=== PATIENT | male | born 1970 | race Caucasian/White ===

== ENCOUNTER 2020-09-13 10:51 | Inpatient (IN) | payer SELFPAY ==
[2020-09-13 12:46] LABS: Absolute Lymphocytes (CBC) 1.9 K/uL (0.7-4.9); Basophils % 0.6 % (0-1.3); Hematocrit 43.9 % (39.6-49.0); Lymphocytes % 19.1 % (15.3-44.8); MPV 9.3 fL (7.6-11.3); RBC Red Blood Cell Count 4.59 M/uL (4.33-5.43)
[2020-09-13 12:54] LABS: Protime INR 1.13
[2020-09-13 13:06] LABS: ALT/SGPT 36 U/L (12-78); AST/SGOT 26 U/L (15-37); Albumin 3.6 g/dL (3.4-5.0); Alkaline Phosphatase 61 U/L (45-117); Amylase 38 U/L (25-115); BUN Blood Urea Nitrogen 9 mg/dL (7-18); Bicarbonate 25 mmol/L (21-32); Bilirubin Direct 0.3 mg/dL (0-0.2); Bilirubin Total 1.3 mg/dL (0.2-1.0); CKMB Creatine Kinase MB < 1.0 ng/mL (0.3-3.6); Creatine Phosphokinase 174 U/L (39-308); Glucose Level 170 mg/dL (74-106); Lipase 122 U/L (73-393); Potassium 3.6 mmol/L (3.5-5.1); Protein, Total 8.1 g/dL (6.4-8.2); Sodium Level 138 mmol/L (136-145); Troponin (Emerg Dept Use Only) < 0.02 ng/mL (0.0-0.045)
[2020-09-13] MEDS ORDERED: ONDANSETRON 4 MG/2 ML VIAL ONE (13:29)
[2020-09-13] MEDS ORDERED: PROMETHAZINE INJ 25 MG/ML AMP ONE (13:29)
[2020-09-13] MEDS ORDERED: DOXYCYCLINE 100 MG CAP PO ONE (13:29)
[2020-09-13] MEDS ORDERED: MORPHINE 4 MG/ML SYR ONE (13:29)
[2020-09-13] MEDS ORDERED: NA CHLORIDE 0.9% 1,000 ML ONE (13:30)
[2020-09-13] MEDS ORDERED: VANCOMYCIN/NS 1 gm 1 GM/250 ML BAG IV ONE (13:30)
[2020-09-13] MEDS ORDERED: TETANUS & DIPHTHERIA TOX,ADULT 0.5 ML VIAL ONE (13:30)
--- NOTE | 2020-09-13 13:42 | RAD REPORT ---
EXAM DESCRIPTION: RAD - Chest Single View - 09/13/2020 12:43 pm CLINICAL HISTORY: PAIN Chest pain. COMPARISON: No comparisons FINDINGS: Portable technique limits examination quality. The lungs are grossly clear. The heart is normal in size. No displaced fractures. IMPRESSION: No acute intrathoracic process suspected.
--- NOTE | 2020-09-13 14:11 | RAD REPORT ---
EXAM DESCRIPTION: USExtremity Venous Uni Ltd09/13/2020 1:52 pm CLINICAL HISTORY: Right leg pain and swelling. COMPARISON: None. FINDINGS: Right common femoral, superficial femoral, popliteal and right posterior tibial veins are compressible and demonstrate augmentation. Doppler demonstrates good flow. 4.3 x 3.5 x 1.6 centimeter Caraballo's cyst Heterogeneous echotexture posterior right calf compatible with mild contusion IMPRESSION: No evidence of deep venous thrombosis involving the right lower extremity. 4.3 centimeter Caraballo's cyst Mild contusion posterior right calf
--- NOTE | 2020-09-13 14:22 | RAD REPORT ---
EXAM DESCRIPTION: RAD - Tib Fib Right - 09/13/2020 2:02 pm CLINICAL HISTORY: Right leg pain FINDINGS: No fracture is seen 3 centimeter radiopaque density within the posteromedial soft tissues of calf likely a foreign body There are additional relatively round calcific densities in this region which could represent phlebo liths, other soft tissue calcifications or additional foreign bodies
--- NOTE | 2020-09-13 14:45 | ER ---
Nurse's Notes [facility] Name: Parker Zepeda Age: 50 yrs Sex: Male : 1970 Arrival Date: 09/13/2020 Time: 10:54 Bed 15 Private MD: Diagnosis: Puncture wound with foreign body of lower leg;Cellulitis of right lower limb Presentation: 09/13 11:26 Chief complaint: Patient states: was fishing and a jaja snapper (fish) struck him em in the back of the right calf on Friday, redness, swelling and drainage noted, unknown fever. Coronavirus screen: Client denies travel out of the [place] in the last 14 days. Ebola Screen: Patient negative for fever greater than or equal to 101.5 degrees Fahrenheit, and additional compatible Ebola Virus Disease symptoms Patient denies exposure to infectious person. Patient denies travel to an Ebola-affected area in the 21 days before illness onset. No symptoms or risks identified at this time. Initial Sepsis Screen: Does the patient meet any 2 criteria? HR > 90 bpm. No. Patient's initial sepsis screen is negative. Does the patient have a suspected source of infection? No. Patient's initial sepsis screen is negative. Risk Assessment: Do you want to hurt yourself or someone else? Patient reports no desire to harm self or others. Onset of symptoms was September 09, 2020. 11:26 Method Of Arrival: Wheelchair em 11:26 Acuity: MOMO 3 em Triage Assessment: 17:30 General: Appears in no apparent distress. Behavior is calm, cooperative. iw Historical: - Allergies: 11:31 No Known Allergies; em - PMHx: 11:31 Hypertension; em - PSHx: 11:31 None; em - Immunization history:: Adult Immunizations not up to date. - Social history:: Smoking status: Patient reports the use of cigarette tobacco products, smokes one-half pack cigarettes per day. Screenin:11 Abuse screen: Denies threats or abuse. Denies injuries from another. Nutritional iw screening: No deficits noted. Tuberculosis screening: No symptoms or risk factors identified. Fall Risk None identified. Assessment: 12:21 Reassessment: received VO from KERLINE Marino for sepsis workup. em 14:50 General: Appears in no apparent distress. Behavior is calm, cooperative. Pain: iw Complains of pain in right leg. Neuro: Level of Consciousness is awake, alert, obeys commands, Oriented to person, place, time, situation, Moves all extremities. Full function. Cardiovascular: Patient's skin is warm and dry. Respiratory: Respiratory effort is even, unlabored, Respiratory pattern is regular, symmetrical. GI: No signs and/or symptoms were reported involving the gastrointestinal system. Derm: redness and swelling noted to RLE, from ankle to mid calf area, circumferential. Musculoskeletal: Range of motion: intact in all extremities. 15:11 Reassessment: Patient appears in no apparent distress at this time. Patient and/or iw family updated on plan of care and expected duration. Pain level reassessed. Patient is alert, oriented x 3, equal unlabored respirations, skin warm/dry/pink. 16:39 Reassessment: Patient appears in no apparent distress at this time. Patient and/or iw family updated on plan of care and expected duration. Pain level reassessed. pt states pain has increased. Vital Signs: 11:26 BP 149 / 90; Pulse 118; Resp 20; Temp 98.6(O); Pulse Ox 100% on R/A; Weight 99.79 kg; em Height 5 ft. 10 in. (177.80 cm); Pain 6/10; 16:40 BP 113 / 79; Pulse 89; Resp 16; Pulse Ox 98% on R/A; iw 11:26 Body Mass Index 31.57 (99.79 kg, 177.80 cm) em ED Course: 10:54 Patient arrived in ED. as 11:29 Triage completed. em 11:31 Arm band placed on. em 12:21 Jamila Abbott FNP-C is PHCP. snw 12:21 Brandon Vieira MD is Attending Physician. snw 12:21 Patient has correct armband on for positive identification. iw 12:23 Alice Thomas, CELESTE is Primary Nurse. iw 12:30 Inserted saline lock: 20 gauge in right forearm, using aseptic technique. Blood em collected. 12:30 Initial lab(s) drawn, by me, sent to lab. First set of blood cultures drawn by me. em 12:43 Chest Single View XRAY In Process Unspecified. EDMS 13:50 US Extremity Venous Unilateral Ltd In Process Unspecified. EDMS 14:05 Tib Fib Right XRAY In Process Unspecified. EDMS 14:43 Roberto Lauren is Hospitalizing Provider. snw 18:06 No provider procedures requiring assistance completed. Patient admitted, IV remains in iw place. Administered Medications: 14:15 Drug: Phenergan 12.5 mg Route: IVP; Site: right antecubital; iw 15:00 Follow up: Response: No adverse reaction iw 14:20 Drug: morphine 4 mg Route: IVP; Site: right antecubital; iw 14:30 Drug: NS 0.9% (30 ml/kg) 30 ml/kg Route: IV; Rate: bolus; Site: right antecubital; iw 14:30 Drug: vancoMYCIN 1 grams Route: IVPB; Infused Over: 2 hrs; Site: right antecubital; iw 16:30 Follow up: IV Status: Completed infusion iw 16:27 Drug: Doxycycline 100 mg Route: PO; iw 17:00 Follow up: Response: No adverse reaction iw 16:27 Drug: Tetanus-Diphtheria Toxoid Adult 0.5 ml {Wood Barker: [employer]. Exp: iw 12/19/2020. Lot #: [id number]. } Route: IM; Site: left deltoid; 16:45 Follow up: Response: No adverse reaction iw Outcome: 14:44 Decision to Hospitalize by Provider. snw 18:06 Admitted to Med/surg accompanied by tech, via wheelchair, with chart. iw 18:06 Condition: good 18:06 Discharge instructions given to patient, Instructed on the need for admit, Demonstrated understanding of instructions. 18:07 Patient left the ED. iw Signatures: Dispatcher [employer] Jamila Gonzalez, BREWING DIRECTOR-C BREWING DIRECTOR-Csnw Duarte Martinez, RN RN Alpa Ramirez as Alice Thomas, RN RN iw Corrections: (The following items were deleted from the chart) 16:41 16:11 Reassessment: Patient appears in no apparent distress at this time. Patient iw and/or family updated on plan of care and expected duration. Pain level reassessed. Patient is alert, oriented x 3, equal unlabored respirations, skin warm/dry/pink. iw
--- NOTE | 2020-09-13 14:45 | EDPHYS ---
Physician Documentation [facility] Name: Parker Zepeda Age: 50 yrs Sex: Male : 1970 Arrival Date: 09/13/2020 Time: 10:54 Bed 15 Private MD: HALEY Physician Brandno Vieira HPI: 09/13 14:44 This 50 yrs old Male presents to ER via Wheelchair with complaints of Wound snw Check - r leg infection. 14:44 The patient presents with pain, a puncture wound, Snapper fin, swelling, tenderness. snw The complaints affect the medial aspect of right calf. Context: The problem was [place], resulted from a penetrating injury, fish fin. Onset: The symptoms/episode began/occurred suddenly, 5 day(s) ago, and became worse yesterday, and became persistent. Associated signs and symptoms: Pertinent positives: swelling, warmth, weakness. Severity of symptoms: At their worst the symptoms were moderate, severe. The patient has not experienced similar symptoms in the past. The patient has not recently seen a physician. Historical: - Allergies: 11:31 No Known Allergies; em - PMHx: 11: Hypertension; em - PSHx: 11:31 None; em - Immunization history:: Adult Immunizations not up to date. - Social history:: Smoking status: Patient reports the use of cigarette tobacco products, smokes one-half pack cigarettes per day. ROS: 14:30 Constitutional: Negative for fever, chills, and weight loss, Eyes: Negative for injury, snw pain, redness, and discharge, ENT: Negative for injury, pain, and discharge, Neck: Negative for injury, pain, and swelling, Cardiovascular: Negative for chest pain, palpitations, and edema, Respiratory: Negative for shortness of breath, cough, wheezing, and pleuritic chest pain, Abdomen/GI: Negative for abdominal pain, nausea, vomiting, diarrhea, and constipation, Back: Negative for injury and pain, : Negative for injury, bleeding, discharge, and swelling, MS/Extremity: Negative for injury and deformity, Neuro: Negative for headache, weakness, numbness, tingling, and seizure, Psych: Negative for depression, anxiety, suicide ideation, homicidal ideation, and hallucinations. 14:30 Skin: Positive for cellulitis, puncture, swelling, of the medial aspect of right calf and right calf. Exam: 14:29 Constitutional: This is a well developed, well nourished patient who is awake, alert, snw and in no acute distress. Head/Face: Normocephalic, atraumatic. Eyes: Pupils equal round and reactive to light, extra-ocular motions intact. Lids and lashes normal. Conjunctiva and sclera are non-icteric and not injected. Cornea within normal limits. Periorbital areas with no swelling, redness, or edema. ENT: Nares patent. No nasal discharge, no septal abnormalities noted. Tympanic membranes are normal and external auditory canals are clear. Oropharynx with no redness, swelling, or masses, exudates, or evidence of obstruction, uvula midline. Mucous membranes moist. Neck: Trachea midline, no thyromegaly or masses palpated, and no cervical lymphadenopathy. Supple, full range of motion without nuchal rigidity, or vertebral point tenderness. No Meningismus. Chest/axilla: Normal chest wall appearance and motion. Nontender with no deformity. No lesions are appreciated. Respiratory: Lungs have equal breath sounds bilaterally, clear to auscultation and percussion. No rales, rhonchi or wheezes noted. No increased work of breathing, no retractions or nasal flaring. Abdomen/GI: Soft, non-tender, with normal bowel sounds. No distension or tympany. No guarding or rebound. No evidence of tenderness throughout. Back: No spinal tenderness. No costovertebral tenderness. Full range of motion. 14:29 Cardiovascular: Rate: tachycardic, Rhythm: regular, Pulses: no pulse deficits are appreciated, Heart sounds: normal. 14:29 Skin: Appearance: normal except for affected area, cellulitis, that is severe, confluent, well demarcated, on the right calf, right Achilles, medial aspect of right calf, right ankle and right aleman, oozing from central area, + puncture wound. Vital Signs: 11:26 BP 149 / 90; Pulse 118; Resp 20; Temp 98.6(O); Pulse Ox 100% on R/A; Weight 99.79 kg; em Height 5 ft. 10 in. (177.80 cm); Pain 6/10; 16:40 BP 113 / 79; Pulse 89; Resp 16; Pulse Ox 98% on R/A; iw 11:26 Body Mass Index 31.57 (99.79 kg, 177.80 cm) em MDM: 12:29 Patient medically screened. snw 14:20 Data reviewed: vital signs, nurses notes. Data interpreted: Pulse oximetry: on room air snw is 100 %. Interpretation: normal. Counseling: I had a detailed discussion with the patient and/or guardian regarding: the historical points, exam findings, and any diagnostic results supporting the discharge/admit diagnosis, the presence of at least one elevated blood pressure reading (>120/80) during this emergency department visit, lab results, radiology results, the need for further work-up and treatment in the hospital. Physician consultation: Dinh Murillo MD was called at 14:23, was contacted at 14:23, regarding consult, patient's condition, NPO post MN. 14:42 Physician consultation: Roberto Lauren was called at 14:42, was contacted at 14:42, snw regarding admission, to the medical/surgical unit. 09/13 12:23 Order name: Amylase, Serum em 09/13 12:23 Order name: Basic Metabolic Panel em 09/13 12:23 Order name: Blood Culture Adult (2) em 09/13 12:23 Order name: CBC with Diff em 09/13 12:23 Order name: Ckmb em 09/13 12:23 Order name: CPK em 09/13 12:23 Order name: Lactate em 09/13 12:23 Order name: LFT's em 09/13 12:23 Order name: Lipase em 09/13 12:23 Order name: Procalcitonin em 09/13 12:23 Order name: Protime (+inr) em 09/13 12:23 Order name: Ptt, Activated em 09/13 12:23 Order name: Troponin (emerg Dept Use Only) em 09/13 12:23 Order name: Urine Microscopic Only em 09/13 12:23 Order name: Chest Single View XRAY; Complete Time: 13:46 em 09/13 12:23 Order name: Amylase; Complete Time: 13:46 EDMS 09/13 12:23 Order name: Basic Metabolic Panel; Complete Time: 13:46 EDMS 09/13 12:24 Order name: Blood Culture EDMS 09/13 12:24 Order name: CBC with Automated Diff; Complete Time: 12:53 EDMS 09/13 12:24 Order name: CKMB Creatine Kinase MB; Complete Time: 13:46 EDMS 09/13 12:24 Order name: Creatine Phosphokinase; Complete Time: 13:46 EDMS 16 12:24 Order name: Lactate; Complete Time: 13:46 EDMS 16 12:24 Order name: Liver (Hepatic) Function; Complete Time: 13:46 EDMS 09/13 12:24 Order name: Lipase; Complete Time: 13:46 EDMS 09/13 12:24 Order name: Procalcitonin; Complete Time: 13:46 EDMS 16 12:24 Order name: Protime (+INR); Complete Time: 13:46 EDMS 16 12:24 Order name: PTT, Activated Partial Thromb; Complete Time: 13:46 EDMS 09/13 12:24 Order name: Troponin (Emerg Dept Use Only); Complete Time: 13:46 EDMS 09/13 16:16 Order name: SARS-COV-2 RT PCR; Complete Time: 16:17 EDMS 09/13 12:23 Order name: Accucheck; Complete Time: 13:37 em 09/13 12:23 Order name: Cardiac monitoring; Complete Time: 19:27 em 09/13 12:23 Order name: EKG - Nurse/Tech; Complete Time: 19:27 em 09/13 12:23 Order name: IV Saline Lock - Large Bore; Complete Time: 13:37 em 09/13 12:23 Order name: Labs collected and sent; Complete Time: 13:37 em 09/13 12:23 Order name: O2 Per Protocol; Complete Time: 13:37 em 09/13 12:23 Order name: O2 Sat Monitoring; Complete Time: 13:37 em 09/13 12:59 Order name: Tib Fib Right XRAY; Complete Time: 14:37 snw 09/13 12:59 Order name: US Extremity Venous Unilateral Ltd; Complete Time: 14:37 snw Administered Medications: 14:15 Drug: Phenergan 12.5 mg Route: IVP; Site: right antecubital; iw 15:00 Follow up: Response: No adverse reaction iw 14:20 Drug: morphine 4 mg Route: IVP; Site: right antecubital; iw 14:30 Drug: NS 0.9% (30 ml/kg) 30 ml/kg Route: IV; Rate: bolus; Site: right antecubital; iw 14:30 Drug: vancoMYCIN 1 grams Route: IVPB; Infused Over: 2 hrs; Site: right antecubital; iw 16:30 Follow up: IV Status: Completed infusion iw 16:27 Drug: Doxycycline 100 mg Route: PO; iw 17:00 Follow up: Response: No adverse reaction iw 16:27 Drug: Tetanus-Diphtheria Toxoid Adult 0.5 ml {Box Folding Machine Operator: [employer]. Exp: iw 12/19/2020. Lot #: [id number]. } Route: IM; Site: left deltoid; 16:45 Follow up: Response: No adverse reaction iw Disposition: 09/14 10:08 Co-signature as Attending Physician, Brandon Vieira MD I agree with the assessment and bella plan of care. Disposition: 09/13/20 14:44 Hospitalization ordered by Roberto Lauren for Inpatient Admission. Preliminary diagnosis are Puncture wound with foreign body of lower leg, Cellulitis of right lower limb. - Bed requested for Telemetry/MedSurg (Inpatient). - Status is Inpatient Admission. iw - Condition is Stable. - Problem is new. - Symptoms have worsened. Signatures: Dispatcher [employer] [facility] Ne Bender RN RN dw Anderson, Corey, MD MD cha Waters, Shelly, SEAT PACK INSPECTOR-C SEAT PACK INSPECTOR-Csnw Duarte Martinez RN RN em Williams, Irene, RN RN Corrections: (The following items were deleted from the chart) 09/13 15:21 13:00 CORONAVIRUS+MR.LAB.BRZ ordered. [facility] EDVT 17:28 14:44 Hospitalization Ordered by Roberto Lauren for Inpatient Admission. Preliminary diagnosis is Puncture wound with foreign body of lower leg; Cellulitis of right lower limb. Bed requested for Telemetry/MedSurg (Inpatient). Status is Inpatient Admission. Condition is Stable. Problem is new. Symptoms have worsened. snw 18:07 17:28 09/13/2020 14:44 Hospitalization Ordered by Roberto Lauren for Inpatient iw Admission. Preliminary diagnosis is Puncture wound with foreign body of lower leg; Cellulitis of right lower limb. Bed requested for Telemetry/MedSurg (Inpatient). Status is Inpatient Admission. Condition is Stable. Problem is new. Symptoms have worsened. dw
--- NOTE | 2020-09-13 16:10 | P.HP ---
Certification for Inpatient Patient admitted to: Inpatient With expected LOS: >2 Midnights Practitioner: I am a practitioner with admitting privileges, knowledge of patient current condition, hospital course, and medical plan of care. Services: Services provided to patient in accordance with Admission requirements found in Title 42 Section 412.3 of the Code of Federal Regulations Patient History Date of Service: 09/13/20 Reason for admission: Cellulitis of leg History of Present Illness: 50-year-old gentleman presented to the emergency department with a complaint pain, swelling and redness of the right leg. Patient reports a fish fin got stuck in his leg about 4 days ago. He could not remove it. This was followed by swelling, pain and redness. X-ray done in the emergency department demonstrated forearm by the in the leg, no gas. He has no leukocytosis. He denied any fever or chills. General surgery Dr. Murillo was informed by the ED provider who recommended admission for surgical exploration. Patient admitted for further management. Allergies No Known Allergies Allergy (Unverified 09/13/20 13:31) - Past Medical/Surgical History -: None -: Hand surgery - Family History Family History: Reviewed- Non-Contributory - Social History Smoking Status: Current every day smoker Alcohol use: No CD- Drugs: No Place of Residence: Home Review of Systems Other: Except as documented, all other systems reviewed and negative. Physical Examination - Physical Exam General: Alert, In no apparent distress, Oriented x3 HEENT: Mucous membr. moist/pink, Sclerae nonicteric Neck: Supple, JVD not distended Respiratory: Clear to auscultation bilaterally, Normal air movement Cardiovascular: No edema, Regular rate/rhythm, Normal S1 S2, No murmurs Gastrointestinal: Normal bowel sounds, Soft and benign, No tenderness Musculoskeletal: Swelling (Right LEs), Tenderness (Right leg) Integumentary: Erythema (Right leg) Neurological: Normal speech, Normal strength at 5/5 x4 extr, Cranial nerves 3-12 intact - Studies Laboratory Data (last 24 hrs) 09/13/20 12:30: PT 13.3 H, INR 1.13, APTT 46.4 H 09/13/20 12:30: WBC 9.7, Hgb 15.1, Hct 43.9, Plt Count 218 09/13/20 12:30: Sodium 138, Potassium 3.6, BUN 9, Creatinine 0.90, Glucose 170 H, Total Bilirubin 1.3 H, AST 26, ALT 36, Alkaline Phosphatase 61, Amylase 38, Lipase 122 Assessment and Plan - Problems (Diagnosis) (1) Cellulitis of right leg Current Visit: Yes Status: Acute (2) Foreign body (FB) in soft tissue Current Visit: Yes Status: Acute (3) Tobacco use Current Visit: Yes Status: Acute - Plan Admit to the medical floor. Will treat with IV cefepime and doxycycline. Doxycycline to cover Vibrio sp. Pain management with IV morphine and IV Toradol. Consult general surgery. Keep right lower extremity elevated. Smoking cessation advised. - Advance Directives Does patient have a Living Will: No Does patient have a Durable POA for Healthcare: No
[2020-09-13] MEDS ORDERED: MORPHINE 2 MG/ML SYR ONE (17:27)
[2020-09-13] MEDS ORDERED: HYDROCODONE/APAP 5/325 MG TAB PO PRN (18:36)
[2020-09-13] MEDS ORDERED: KETOROLAC 30 MG/ML INJ IV PRN (18:36)
[2020-09-13] MEDS ORDERED: ACETAMINOPHEN 500 MG TAB PO PRN (18:36)
[2020-09-13] MEDS: NA CHLORIDE 0.9% 1,000 ML IV SCH (18:41)
[2020-09-13] MEDS: FENTANYL CITR 100 MCG/2 ML IV PRN ×2 (19:02→22:44)
[2020-09-13] MEDS: HEPARIN 5000 UNIT/ML 1 ML VIAL SQ SCH (19:02)
[2020-09-13] MEDS ORDERED: CEFEPIME 1 GM/VIAL IV SCH (21:00)
[2020-09-13] MEDS: CEFEPIME/SWI 1gm 10 ML IV SCH (21:00)
[2020-09-13] MEDS ORDERED: POTASSIUM CL SA 10 MEQ TAB PO ONE (21:00)
[2020-09-13] MEDS: DOXYCYCLINE 100 MG in NA CHLORIDE 0.9% 100 ML IVPB SCH (21:01)
[2020-09-13 21:27] VITALS: BMI 30.7
[2020-09-14] MEDS: HEPARIN 5000 UNIT/ML 1 ML VIAL SQ SCH ×3 (01:00→17:40)
[2020-09-14] MEDS: FENTANYL CITR 100 MCG/2 ML IV PRN ×3 (01:49→09:31)
[2020-09-14] MEDS: NA CHLORIDE 0.9% 1,000 ML IV SCH ×2 (04:36→14:36)
[2020-09-14] MEDS ORDERED: INFLUENZA VACCINE (for 3y+) 0.5 ML DOSE IMVAC ONE (06:00)
[2020-09-14 07:50] LABS: BUN Blood Urea Nitrogen 9 mg/dL (7-18); Bicarbonate 25 mmol/L (21-32); Glucose Level 97 mg/dL (74-106); Potassium 4.2 mmol/L (3.5-5.1); Sodium Level 142 mmol/L (136-145)
[2020-09-14] MEDS: CEFEPIME/SWI 1gm 10 ML IV SCH ×2 (08:03→20:42)
[2020-09-14] MEDS: DOXYCYCLINE 100 MG in NA CHLORIDE 0.9% 100 ML IVPB SCH ×2 (09:29→20:43)
[2020-09-14 10:23] LABS: Urine Appearance CLEAR; Urine Bilirubin NEGATIVE (NEG); Urine Blood NEGATIVE (NEG); Urine Color YELLOW; Urine Glucose NEGATIVE (NEG); Urine Protein NEGATIVE (NEG); Urine Urobilinogen 0.2 mg/dL (0.2-1.0); Urine pH 7.5 (5.0-7.0)
[2020-09-14 10:25] LABS: Urine Microscopic Reflex NO UMIC
--- NOTE | 2020-09-14 11:25 | P.PN ---
Subjective Date of Service: 09/14/20 Chief Complaint: Cellulitis of leg Patient states the pain in his right leg is much better today. He is scheduled for surgical exploration today. Physical Examination - Vital Signs Temperature: 98.1 F Blood Pressure: 132/80 Pulse: 82 Respirations: 18 Pulse Ox (%): 93 - Physical Exam General: Alert, In no apparent distress Respiratory: Clear to auscultation bilaterally, Normal air movement Cardiovascular: No edema, Regular rate/rhythm, Normal S1 S2 Gastrointestinal: Normal bowel sounds, Soft and benign, No tenderness Musculoskeletal: Swelling (Right leg swelling significantly improved.) Integumentary: Erythema (Right leg erythema significantly improved.) Neurological: Normal strength at 5/5 x4 extr - Studies Laboratory Data (last 24 hrs) 09/13/20 12:30: PT 13.3 H, INR 1.13, APTT 46.4 H 09/13/20 12:30: WBC 9.7, Hgb 15.1, Hct 43.9, Plt Count 218 09/13/20 12:30: Sodium 138, Potassium 3.6, BUN 9, Creatinine 0.90, Glucose 170 H, Total Bilirubin 1.3 H, AST 26, ALT 36, Alkaline Phosphatase 61, Amylase 38, Lipase 122 Assessment And Plan - Current Problems (Diagnosis) (1) Cellulitis of right leg Current Visit: Yes Status: Acute (2) Foreign body (FB) in soft tissue Current Visit: Yes Status: Acute (3) Tobacco use Current Visit: Yes Status: Acute - Plan Continue IV cefepime and doxycycline. Doxycycline to cover Vibrio sp. Pain management with IV morphine and IV Toradol. Patient scheduled for surgery today. Keep right lower extremity elevated. .
[2020-09-14] MEDS ORDERED: MIDAZOLAM HCL 2 MG/2 ML INJ ONE (12:44)
[2020-09-14] MEDS ORDERED: LIDOCAINE 2% MPF 5 ML VIAL ONE (12:44)
[2020-09-14] MEDS ORDERED: FENTANYL CITR 100 MCG/2 ML ONE (12:44)
[2020-09-14] MEDS ORDERED: propofoL 200 MG/20 ML VIAL IV ONE (12:44)
[2020-09-14] MEDS ORDERED: NA CHLORIDE 0.9% 1,000 ML ONE (13:11)
--- NOTE | 2020-09-14 13:23 | CON ---
Date of Consultation: 09/13/2020 Brief History Of Present Illness: The patient is a 50-year-old male, who was fishing and had a donnell er fin punctured his leg and caused tenderness and pain in the right calf area. He noted the pain go t significantly worse and as such, it occurred the day before, as such he came to the emergency room with the above-stated complaints. Imaging performed and confirmed that there was a foreign body pres ent in his right lateral leg area, redness, cellulitis, tenderness, and minimal drainage from a punct ure site on the lateral aspect of his thigh. Past Medical History: Hypertension. Past Surgical History: Denies. Medications: None. Allergies: NO KNOWN DRUG ALLERGIES. Review of Systems: Ten point review of systems other than HPI, denies. Physical Examination: Vital Signs: At the time of my examination, his blood pressure was 132/80, pulse is 82, respiratory rate 18, temperature 98.1. General: He is awake, alert, and oriented. Psychiatric: Appropriate. Conversive. HEENT: Normocephalic. Sclerae anicteric. Mucous membranes were moist. Oropharynx clear. Neck: Supple without JVD. Chest: Normal expansion and excursion. Cardiovascular: Regular rate and rhythm. Pulmonary: Clear to auscultation bilaterally. Abdomen: Soft, nontender, and nondistended. Extremities: Focused examination of the lower extremities, on the right lower extremity, he has cell ulitic changes to the lateral aspect of the right calf. There is tenderness, swelling, and pain to t his area. His foot is also swollen concomitantly. There was minimal drainage from the lateral aspec t of the wound. Laboratory Data: He had a laboratory exam, which revealed a white blood cell count of 9.7, hemoglobi n 15.1, hematocrit 43.9, platelet count is 218. Neutrophils were 74%. His PT is 13.3, INR 1.13, PTT is 46.4. His sodium is 138, potassium 3.6, chloride 105, carbon dioxide 25, BUN 9, creatinine 0.9, glucose is 170, lactic acid 1.4. His lipase was 122. His UA was essentially negative. He had imagi ng performed, which included a chest x-ray, officially read as no acute intrathoracic process. He ad ditionally had an extremity venous study, which was officially read as no evidence of deep venous thr ombosis involving right lower extremity. 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 He had imaging performed also, which included a tibia-fibula x-ray on the right, whi ch was officially read as a 3 cm radiopaque density within the posterior soft tissues like ly calf foreign body. There are additional relatively round calcific densities in the region, which represents phleboliths. The other soft tissue calcifications or additional foreign bodies. Assessment And Plan: This is a 50-year-old male, who comes in with signs and symptoms of foreign bod y likely from the fish spine stuck in the right calf area. 1.IV fluid hydration. 2.Antibiotic coverage. 3.I have explained risks, benefits, and alternatives of removal of this foreign body surgically by m chrisg an incision, debriding all nonviable and infected tissue, and continued wound care postoperativ pam. The patient agrees to proceed. I have explained the risks, benefits, and alternatives of this surgical procedure including, but not limited to bleeding, infection, damage to surrounding tissues, nerve injury, need for further operation and procedures. The patient agrees to proceed as indicated. Thank you for this interesting consult. LOUIE/RACHELE Voice ID: [id number] Report ID: [id number]
[2020-09-14] MEDS ORDERED: BUPIVACAINE 0.25% PF 30 ML VIAL ONE (14:29)
--- NOTE | 2020-09-14 15:01 | P.OP ---
Preoperative diagnosis: RIGHT calf foreign body Postoperative diagnosis: RIGHT calf foreign body Primary procedure: Removal of RIGHT calf foreign body Anesthesia: GETA + Local Estimated blood loss: <2cc Specimen: cultures sent, foreign body sent for ID Findings: foreign body consistent with fish dorsal spine Complications: None Drain(s): Other (1/2" iodoform) Transferred to: Recovery Room Condition: Good
[2020-09-14] MEDS ORDERED: KETOROLAC 30 MG/ML INJ ONE (15:09)
[2020-09-14] MEDS ORDERED: MORPHINE 10 MG/ML VIAL ONE (15:10)
[2020-09-14] MEDS: HYDROMORPHONE HCL 1 MG/ML INJ ONE ×6 (15:25→15:50)
--- NOTE | 2020-09-14 15:30 | OP ---
Date of Procedure: 09/14/2020 Surgeon: Salima Murillo MD, Preoperative Diagnosis: Right calf foreign body. Postoperative Diagnosis: Right calf foreign body. Procedure Performed: Removal of right calf foreign body. Anesthesia: General endotracheal plus local with 0.25% Marcaine without epinephrine. Estimated Fluid Loss: Less than 2 mL. Specimens: Cultures sent, foreign body sent for ID. Findings: Foreign body consistent with a dorsal fish spine. Complications: None. Drains: Half-inch iodoform packing placed into the wound. Disposition: The patient was transferred to recovery room in good condition. Procedure In Detail: After informed consent was obtained, the patient was brought to the operating r oom and prepped and draped in the usual sterile fashion after adequate anesthesia was achieved. The medial aspect of the leg had a small punctate wound consistent with a fish spine insertion in this ar ea. I made a linear incision overlying this area and dissected down through subcutaneous tissues and into the subcutaneous fat. The fish spine appeared to extend into the muscle. I then removed this fish spine without evidence of complication. I probed the tract and no additional spine was apprecia salima. The tissues were somewhat inflamed. I did blunt dissection in the area. No additional foreign bodies were appreciated. I then irrigated the area, packed the wound with half-inch iodoform packin g, and a sterile dressing was placed over top. The patient tolerated the procedure well without evidence of complication and transferred to PACU in good condition. All counts were cor rect at the end of the case. LOUIE/RACHELE Voice ID: [id number] Report ID: [id number]
[2020-09-14] MEDS ORDERED: ONDANSETRON 4 MG/2 ML VIAL ONE (15:41)
[2020-09-14 16:37] VITALS: O2SAT 96
[2020-09-14] MEDS: FAMOTIDINE 20 MG TAB PO SCH (20:43)
[2020-09-15] MEDS: NA CHLORIDE 0.9% 1,000 ML IV SCH ×2 (00:36→09:36)
[2020-09-15] MEDS: FENTANYL CITR 100 MCG/2 ML IV PRN ×2 (01:30→09:33)
[2020-09-15] MEDS: HEPARIN 5000 UNIT/ML 1 ML VIAL SQ SCH ×2 (01:33→09:35)
[2020-09-15 05:55] LABS: Magnesium 2.1 mg/dL (1.8-2.4); Phosphorus 3.3 mg/dL (2.5-4.9); Potassium 3.8 mmol/L (3.5-5.1)
[2020-09-15] MEDS ORDERED: POTASSIUM CL SA 10 MEQ TAB PO ONE (09:00)
[2020-09-15] MEDS: DOXYCYCLINE 100 MG in NA CHLORIDE 0.9% 100 ML IVPB SCH (09:34)
[2020-09-15] MEDS: CEFEPIME/SWI 1gm 10 ML IV SCH (09:36)
[2020-09-15] MEDS: FAMOTIDINE 20 MG TAB PO SCH (09:45)
[2020-09-15 09:48] VITALS: BP 106/69; TEMP 98.3
--- NOTE | 2020-09-15 10:48 | P.DS ---
Admission Date: 09/13/20 Discharge Date: 09/15/20 Disposition: ROUTINE DISCHARGE Discharge Condition: FAIR Reason for Admission: Cellulitis of leg - Problems (1) Cellulitis of right leg Current Visit: Yes Status: Acute (2) Foreign body (FB) in soft tissue Current Visit: Yes Status: Acute (3) Tobacco use Current Visit: Yes Status: Acute Brief History of Present Illness: 50-year-old gentleman presented to the emergency department with a complaint pain, swelling and redness of the right leg. Patient reports a fish fin got stuck in his leg about 4 days ago. He could not remove it. This was followed by swelling, pain and redness. X-ray done in the emergency department demonstrated forearm by the in the leg, no gas. He has no leukocytosis. He denied any fever or chills. General surgery Dr. Murillo was informed by the ED provider who recommended admission for surgical exploration. Patient admitted for further management. Hospital Course: Patient admitted to the medical floor and treated with IV Levaquin and doxycycline. Patient was seen and evaluated by Dr. Murillo general surgery will to came to OR and removed the fish fin from the right calf. The surgical wound was packed. The cellulitis and swelling improved significantly with IV antibiotic. He had no sepsis. His blood pressure was borderline low. Patient has clinically improved. He is deemed clinically stable for this per Dr. Murillo. He is discharged with oral Levaquin and doxycycline. Wound care instructions given to him by Dr. Murillo. He will follow with Dr. Murillo within 1 week. Vital Signs/Physical Exam: Temp Pulse Resp BP Pulse Ox 98.3 F 85 16 106/69 96 09/15/20 08:00 09/15/20 08:00 09/15/20 08:00 09/15/20 08:00 09/15/20 08:00 General: Alert, In no apparent distress HEENT: Mucous membr. moist/pink Respiratory: Clear to auscultation bilaterally, Normal air movement Cardiovascular: No edema, Regular rate/rhythm, Normal S1 S2 Gastrointestinal: Normal bowel sounds, Soft and benign, No tenderness Integumentary: Other (Right calf surgical wound is clean and packed.) Neurological: Normal speech, Normal strength at 5/5 x4 extr Laboratory Data at Discharge: WBC 9.7 K/uL (4.3-10.9) 09/13/20 12:30 Hgb 15.1 g/dL (13.6-17.9) 09/13/20 12:30 Hct 43.9 % (39.6-49.0) 09/13/20 12:30 Plt Count 218 K/uL (152-406) 09/13/20 12:30 PT 13.3 SECONDS (9.5-12.5) H 09/13/20 12:30 INR 1.13 09/13/20 12:30 APTT 46.4 SECONDS (24.3-36.9) H 09/13/20 12:30 Sodium 142 mmol/L (136-145) 09/14/20 07:19 Potassium 3.8 mmol/L (3.5-5.1) 09/15/20 05:11 BUN 9 mg/dL (7-18) 09/14/20 07:19 Creatinine 0.76 mg/dL (0.55-1.3) 09/14/20 07:19 Glucose 97 mg/dL (74-106) 09/14/20 07:19 Phosphorus 3.3 mg/dL (2.5-4.9) 09/15/20 05:11 Magnesium 2.1 mg/dL (1.8-2.4) 09/15/20 05:11 Total Bilirubin 1.3 mg/dL (0.2-1.0) H 09/13/20 12:30 AST 26 U/L (15-37) 09/13/20 12:30 ALT 36 U/L (12-78) 09/13/20 12:30 Alkaline Phosphatase 61 U/L (45-117) 09/13/20 12:30 Amylase 38 U/L (25-115) 09/13/20 12:30 Lipase 122 U/L (73-393) 09/13/20 12:30 Home Medications: Amox/Clavulanate [Augmentin 875-125 Tab] 875 mg PO BID #14 tab 09/15/20 Doxycycline Hyclate [Vibramycin] 100 mg PO BID #14 capsule 09/15/20 New Medications: Amox/Clavulanate [Augmentin 875-125 Tab] 875 mg PO BID #14 tab Doxycycline Hyclate [Vibramycin] 100 mg PO BID #14 capsule Diet: AHA Activity: Ad braxton Followup: Dinh Murillo MD [ACTIVE - CAN ADMIT] - 1 Week (Follow up in office in 1 week. Call to schedule an appointment. ) Time spent managing pt's care (in minutes): 38
== END 2020-09-15 12:19 | disposition home or self-care (01) | DRG 581 ==
LOC: ER 10:51 → ERHOLD 15:22 → 2ND 17:48
PROVIDERS: ADMIT Internal Medicine; ATTEND Internal Medicine
PROC: 0KCS0ZZ Extirpation of Matter from Right Lower Leg Muscle, Open Approach (ICD-10-PCS; principal; 2020-09-14 16:30)
DX: L03.115 Cellulitis of right lower limb (principal); I10 Essential (primary) hypertension; F17.210 Nicotine dependence, cigarettes, uncomplicated; W45.8XXA Other foreign body or object entering through skin, initial encounter; Z79.899 Other long term (current) drug therapy; Z20.828 Contact with and (suspected) exposure to other viral communicable diseases
CPT/HCPCS: 36415; 71045; 80048; 80076; 81003; 82150; 82550; 82553; 83605; 83690; 83735; 84100; 84132; 84145; 84484; 85025; 85610; 85730; 87040; 87070; 87075; 87077; 87186; 87205; 88300; 90471; 90714; 93971; 96365; 96366; 96375; 99285; J0692; J1170; J1644; J2250; J2270; J2405; J2550; J2704; J3010; J3370; J7030; U0003

== ENCOUNTER 2020-12-19 09:56 | Emergency (ER) | payer SELFPAY ==
--- NOTE | 2020-12-19 10:24 | ER ---
Nurse's Notes [facility] Name: Parker Zepeda Age: 50 yrs Sex: Male : 1970 Arrival Date: 12/19/2020 Time: 09:57 Bed 15 Private MD: Diagnosis: Rash and other nonspecific skin eruption Presentation: 12/19 10:07 Chief complaint: Hives on torso and face x 3 days, not responding to Benadryl and hb Zyrtec. Coronavirus screen: At this time, the client does not indicate any symptoms associated with coronavirus-19. Ebola Screen: No symptoms or risks identified at this time. Onset: The symptoms/episode began/occurred 3 day(s) ago. Anaphylaxis evaluation, no signs or symptoms of anaphylaxis were noted. Initial Sepsis Screen: Does the patient meet any 2 criteria? No. Patient's initial sepsis screen is negative. Does the patient have a suspected source of infection? No. Patient's initial sepsis screen is negative. Risk Assessment: Do you want to hurt yourself or someone else? Patient reports no desire to harm self or others. Onset of symptoms was December 16, 2020. 10:07 Method Of Arrival: Ambulatory hb 10:07 Acuity: MOMO 4 hb Historical: - Allergies: 10:10 Dilaudid; hb - Immunization history:: Adult Immunizations up to date. - Social history:: Smoking status: Patient denies any tobacco usage or history of. Screenin:32 Abuse screen: Denies threats or abuse. Nutritional screening: No deficits noted. ll1 Tuberculosis screening: No symptoms or risk factors identified. Fall Risk None identified. Total Sharpe Fall Scale indicates No Risk (0-24 pts). Assessment: 10:10 General: Appears in no apparent distress. Behavior is calm, cooperative, appropriate ll1 for age. Pain: Denies pain. Respiratory: Airway is patent Trachea midline Respiratory effort is even, unlabored, Respiratory pattern is regular, symmetrical, Breath sounds are clear bilaterally. Derm: Rash noted that is Reports rash to face and torso. 10:50 Reassessment: No changes from previously documented assessment. Patient and/or family ll1 updated on plan of care and expected duration. Pain level reassessed. Patient is alert, oriented x 3, equal unlabored respirations, skin warm/dry/pink. Vital Signs: 10:07 BP 129 / 88; Pulse 88; Resp 16; Temp 97.8; Pulse Ox 100% on R/A; Pain 2/10; hb ED Course: 09:57 Patient arrived in ED. mr 10:07 Ellis Soler PA is PHCP. [facility] 10:07 Lenny Rios MD is Attending Physician. [facility] 10:09 Triage completed. hb 10:10 Arm band placed on. hb 10:16 Pop Lopez, CELESTE is Primary Nurse. ll1 10:32 Patient has correct armband on for positive identification. Bed in low position. Call ll1 light in reach. Side rails up X 1. Pulse ox on. 10:44 No provider procedures requiring assistance completed. Patient did not have IV access ll1 during this emergency room visit. Administered Medications: 10:34 Drug: Decadron 10 mg Route: IM; Site: left deltoid; sr5 10:50 Follow up: Response: No adverse reaction; RASS: Alert and Calm (0) ll1 Outcome: 10:24 Discharge ordered by MD. [facility] 10:50 Discharged to home ambulatory. ll1 10:50 Condition: stable 10:50 Discharge instructions given to patient, Instructed on discharge instructions, follow up and referral plans. medication usage, Demonstrated understanding of instructions, follow-up care, medications, Prescriptions given X 2. 10:50 Patient left the ED. ll1 Signatures: Ellis Soler PA PA jmm Edd Kika mr OrellanaLeny, RN CELESTE Donovan Benton RN RN [facility] Pop Lopez, CELESTE RN ll1
--- NOTE | 2020-12-19 10:24 | EDPHYS ---
Physician Documentation [facility] Name: Parker Zepeda Age: 50 yrs Sex: Male : 1970 Arrival Date: 12/19/2020 Time: 09:57 Bed 15 Private MD: ED Physician Lenny Rios HPI: 12/19 10:15 This 50 yrs old Male presents to ER via Ambulatory with complaints of Hives. jmm 10:15 The rash is located on the body diffusely. Onset: The symptoms/episode began/occurred jmm gradually, 5 day(s) ago. Associated signs and symptoms: Pertinent positives: itching, wheezing, Pertinent negatives: difficulty breathing, swelling of lips, swelling of throat, swelling of tongue. The patient has experienced similar episodes in the past. This is a 50 year old male with no known chronic medical conditions that presents to the ED with complaints of diffuse rash, mainly on his back which occurred 4 to 5 days ago. Patient states he has had a similar rash in the past that was relieved with oral steroids. Denies shortness of breath, or swelling of the lips but stated he has had some wheezing. . Historical: - Allergies: 10:10 Dilaudid; hb - Immunization history:: Adult Immunizations up to date. - Social history:: Smoking status: Patient denies any tobacco usage or history of. ROS: 10:15 Constitutional: Negative for fever, chills, and weight loss, Cardiovascular: Negative jmm for chest pain, palpitations, and edema, Respiratory: Negative for shortness of breath, cough, wheezing, and pleuritic chest pain, Abdomen/GI: Negative for abdominal pain, nausea, vomiting, diarrhea, and constipation. 10:15 Skin: Positive for rash. 10:15 All other systems are negative. Exam: 10:15 Constitutional: This is a well developed, well nourished patient who is awake, alert, jmm and in no acute distress. Head/Face: atraumatic. Eyes: EOMI, no conjunctival erythema appreciated ENT: Moist Mucus Membranes Neck: Trachea midline, Supple Chest/axilla: Normal chest wall appearance and motion. Cardiovascular: Regular rate and rhythm. No edema appreciated Respiratory: Normal respirations, no respiratory distress appreciated Abdomen/GI: Non distended, soft Back: Normal ROM 10:15 MS/ Extremity: Moves all extremities, no obvious deformities appreciated, no edema noted to the lower extremities Neuro: Awake and alert, normal gait Psych: Behavior is normal, Mood is normal, Patient is cooperative and pleasant 10:15 Skin: on the back, right arm and left arm. Vital Signs: 10:07 BP 129 / 88; Pulse 88; Resp 16; Temp 97.8; Pulse Ox 100% on R/A; Pain 2/10; hb MDM: 10:11 Patient medically screened. [facility] 10:18 Data reviewed: vital signs, nurses notes. Counseling: I had a detailed discussion with alejandra the patient and/or guardian regarding: the historical points, exam findings, and any diagnostic results supporting the discharge/admit diagnosis, the need for outpatient follow up, to return to the emergency department if symptoms worsen or persist or if there are any questions or concerns that arise at home. ED course: Patient is alert and non toxic in appearance. Rash appears to be a contact dermatitis pattern. Will treat with steroids. Patient is advised to return to the ED if symptoms worsen. Patient understood and agrees with the plan of care. . Administered Medications: 10:34 Drug: Decadron 10 mg Route: IM; Site: left deltoid; sr5 10:50 Follow up: Response: No adverse reaction; RASS: Alert and Calm (0) ll1 Disposition: 11:18 Co-signature as Attending Physician, Lenny Rios MD. rn Disposition: 12/19/20 10:24 Discharged to Home. Impression: Rash and other nonspecific skin eruption. - Condition is Stable. - Discharge Instructions: Rash. - Prescriptions for Hydroxyzine HCl 25 mg Oral Tablet - take 1 tablet by ORAL route every 6 hours As needed; 30 tablet. Prednisone 20 mg Oral Tablet - take 3 tablets by ORAL route as directed for 12 days Please take 3 tabs by mouth daily for 3 days, then take 2 tabs by mouth daily for 3 days, then take 1 tab by mouth daily for 3 days, then take 1/2 tab by mouth daily for 3 days.; 20 tablet. - Medication Reconciliation Form, Thank You Letter, Antibiotic Education, Prescription Opioid Use form. - Follow up: Private Physician; When: 2 - 3 days; Reason: Recheck today's complaints, Continuance of care, Re-evaluation by your physician. Signatures: Ellis Soler PA PA jmm Nieto, Roman, MD MD rn Baxter, Heather, RN RN Donovan Madrigal RN RN sr5 Pop Lopez RN RN ll1 Corrections: (The following items were deleted from the chart) 10:50 10:24 12/19/2020 10:24 Discharged to Home. Impression: Rash and other nonspecific skin ll1 eruption. Condition is Stable. Forms are Medication Reconciliation Form, Thank You Letter, Antibiotic Education, Prescription Opioid Use. Follow up: Private Physician; When: 2 - 3 days; Reason: Recheck today's complaints, Continuance of care, Re-evaluation by your physician. jmm
[2020-12-19] MEDS ORDERED: dexAMETHasone 10 MG/ML VIAL ONE (10:38)
[2020-12-19 11:02] VITALS: BP 129/88; TEMP 97.8; O2SAT 100
== END 2020-12-19 10:50 | disposition home or self-care (01) ==
LOC: ER 09:56
DX: R21 Rash and other nonspecific skin eruption (principal); Z88.6 Allergy status to analgesic agent
CPT/HCPCS: 96372; 99283; J1100

== ENCOUNTER 2021-02-08 12:44 | Emergency (ER) | payer SELFPAY ==
--- NOTE | 2021-02-08 13:45 | ER ---
Nurse's Notes [facility] Name: Parker Zepeda Age: 50 yrs Sex: Male : 1970 Arrival Date: 02/08/2021 Time: 12:48 Bed Waiting Private MD: Diagnosis: ED Course: 02/08 12:48 Patient arrived in ED. mr 13:44 Patient's name was called from ER lobby. No response. Unable to locate patient. Will jl7 disposition as left without being seen by a provider. Administered Medications: No medications were administered Outcome: 13:45 Patient left the ED. jl7 Signatures: Kika Puga Jahala RN RN jl7
== END 2021-02-08 13:45 | disposition left against medical advice (07) ==
LOC: ER 12:44
DX: Z02.9 Encounter for administrative examinations, unspecified (principal)

== ENCOUNTER 2021-04-10 14:58 | Inpatient (IN) | payer SELFPAY ==
[2021-04-10 15:50] LABS: Absolute Lymphocytes (CBC) 0.9 K/uL (0.7-4.9); Basophils % 0.3 % (0-1.3); Hematocrit 42.1 % (39.6-49.0); Lymphocytes % 7.7 % (15.3-44.8); MPV 8.9 fL (7.6-11.3); RBC Red Blood Cell Count 4.43 M/uL (4.33-5.43)
[2021-04-10] MEDS ORDERED: MEPERIDINE HCL 25 MG/ML SYR ONE ×2 (15:58→17:38)
[2021-04-10] MEDS ORDERED: LORazepam 2 MG/ML VIAL ONE (15:58)
[2021-04-10] MEDS ORDERED: NA CHLORIDE 0.9% 1,000 ML ONE (15:59)
--- NOTE | 2021-04-10 15:59 | RAD REPORT ---
EXAM DESCRIPTION: RAD - Chest Single View - 04/10/2021 3:51 pm CLINICAL HISTORY: CHEST PAIN COMPARISON: 09/13/2021 FINDINGS: Patchy ill-defined airspace opacities bilaterally which are widespread. The heart size is within normal limits.No acute osseous abnormality. No significant pleural effusions or pneumothorax. IMPRESSION: Widespread bilateral airspace disease could reflect multifocal pneumonia including Covid -19. Edema less likely.
[2021-04-10 16:03] LABS: Protime INR 1.09
[2021-04-10 16:10] LABS: BUN Blood Urea Nitrogen 16 mg/dL (7-18); Bicarbonate 24 mmol/L (21-32); Creatine Phosphokinase 123 U/L (39-308); Glucose Level 117 mg/dL (74-106); NT PRO-BNP 62 pg/mL (<125); Potassium 3.4 mmol/L (3.5-5.1); Sodium Level 139 mmol/L (136-145); Troponin (Emerg Dept Use Only) < 0.02 ng/mL (0.0-0.045)
[2021-04-10 16:38] LABS: Blood Morphology Comment NOT SEEN (NOT SEEN); Platelet Estimate ADEQ; White Blood Cell Scan OK (OK)
--- NOTE | 2021-04-10 17:05 | RAD REPORT ---
EXAM DESCRIPTION: CT - Angio Aorta For Dissection - 04/10/2021 4:53 pm CLINICAL HISTORY: CHEST PAIN COMPARISON: Chest Single View dated 04/10/2021 FINDINGS: Thorax: Widespread bilateral airspace disease with subpleural sparing, worse in the upper lungs. No aortic aneurysm or dissection. No pulmonary embolus is identified. Heart size is normal. Abdomen/ pelvis: Miniscule subcentimeter liver lesions noted which are likely benign gallbladder is w ithin normal limits. No adrenal lesions. No focal splenic lesions identified. The pancreas is unremar kable. The kidneys are unremarkable. No stones or hydronephrosis. Prostate unremarkable. The bladder is within normal limits. Appendix is normal. No bowel obstruction is identified. Tiny fat containing inguinal hernias. IMPRESSION: 1.No aortic aneurysm, aortic dissection, or pulmonary embolus identified. 2. Widespread bilateral airspace disease which could reflect multifocal pneumonia (including Covid-19 ), pulmonary edema, or other less common atypical sources of infection or inflammation. 3. No acute intra-abdominal abnormality.
[2021-04-10] MEDS ORDERED: FUROSEMIDE 40 MG/4 ML VIAL ONE (18:32)
[2021-04-10] MEDS ORDERED: NA CHLORIDE 0.9% 500 ML ONE (18:32)
--- NOTE | 2021-04-10 18:32 | ER ---
Nurse's Notes [facility] Name: Parker Zepeda Age: 51 yrs Sex: Male : 1970 Arrival Date: 04/10/2021 Time: 14:59 Bed 2 Private MD: Diagnosis: Pneumonia, unspecified organism-Bilateral;Hypoxemia;Chest pain, unspecified Presentation: 04/10 15:05 Chief complaint: Left sided chest pain that radiates to left arm 6/10 and SOB that hb started 1 hr ago. Pt stated "I hung out with a stripper and did coke for 2 days." Last cocaine use was last night. Coronavirus screen: Client presents with at least one sign or symptom that may indicate coronavirus-19. Standard/surgical mask placed on the client. Provider contacted for isolation considerations. Ebola Screen: No symptoms or risks identified at this time. Initial Sepsis Screen: Does the patient meet any 2 criteria? No. Patient's initial sepsis screen is negative. Does the patient have a suspected source of infection? No. Patient's initial sepsis screen is negative. Risk Assessment: Do you want to hurt yourself or someone else? Patient reports no desire to harm self or others. Onset of symptoms was April 10, 2021. 15:05 Method Of Arrival: Ambulatory hb 15:05 Acuity: MOMO 2 hb Historical: - Allergies: 15:07 Dilaudid; hb - Home Meds: 15:07 losartan oral [Active]; hb - PMHx: 15:07 Hypertension; hb - Immunization history:: Adult Immunizations up to date. - Social history:: Smoking status: Patient reports the use of cigarette tobacco products, smokes one-half pack cigarettes per day. - Family history:: not pertinent. - Hospitalizations: : No recent hospitalization is reported. Screenin:49 Abuse screen: Denies threats or abuse. Denies injuries from another. Nutritional ph screening: No deficits noted. Tuberculosis screening: No symptoms or risk factors identified. Fall Risk None identified. Assessment: 15:30 General: Appears in no apparent distress. uncomfortable, well groomed, Behavior is ph cooperative, appropriate for age, anxious, Denies fever. Pain: Complains of pain in anterior aspect of left upper chest Pain does not radiate. Pain currently is 8 out of 10 on a pain scale. Pain began this morning. Neuro: Level of Consciousness is awake, alert, obeys commands, Oriented to person, place, time, situation. Cardiovascular: Reports chest pain, shortness of breath, Capillary refill < 3 seconds in bilateral fingers Patient's skin is warm and dry. Respiratory: Reports shortness of breath at rest cough that is pain with cough pain with movement pain with respiration Airway is patent Respiratory effort is even, labored, Respiratory pattern is regular. GI: No signs and/or symptoms were reported involving the gastrointestinal system. Patient currently denies nausea, vomiting. Derm: Skin is intact, Skin is pink, warm \\T\\ dry. Musculoskeletal: Circulation, motion, and sensation intact. Range of motion: intact in all extremities. 17:18 Reassessment: Patient appears in no apparent distress at this time. Patient and/or ph family updated on plan of care and expected duration. Pain level reassessed. Patient is alert, oriented x 3, equal unlabored respirations, skin warm/dry/pink. Vital Signs: 15:05 BP 137 / 89; Pulse 108; Resp 20; Temp 97; Pulse Ox 94% on R/A; Weight 107.95 kg; Height hb 5 ft. 11 in. (180.34 cm); Pain 6/10; 17:09 BP 113 / 83; Pulse 91; Resp 14; Pulse Ox 94% on 4 lpm NC; ph 18:25 BP 121 / 97; Pulse 98; Resp 17; Pulse Ox 95% on 4 lpm NC; tw2 18:44 Pulse Ox 90% on R/A; ph 15:05 Body Mass Index 33.19 (107.95 kg, 180.34 cm) hb ED Course: 14:59 Patient arrived in ED. as 15:07 Triage completed. hb 15:07 Arm band placed on. hb 15:19 Lenny Rios MD is Attending Physician. rn 15:45 Initial lab(s) drawn, by me, sent to lab. Inserted saline lock: 22 gauge in left hand, ph using aseptic technique. Blood collected. 15:47 Sherron Curiel, RN is Primary Nurse. ph 15:49 Patient has correct armband on for positive identification. Placed in gown. Bed in low ph position. Call light in reach. Side rails up X2. ekg monitor on. Pulse ox on. NIBP on. Door closed. Noise minimized. Warm blanket given. 15:51 XRAY Chest (1 view) In Process Unspecified. EDMS 16:53 CT Aorta for Dissection In Process Unspecified. EDMS 16:53 Inserted saline lock: 22 gauge in right forearm, using aseptic technique. ,using tw2 aseptic technique. by Kelly CT/Tech. 16:53 Patient maintains SpO2 saturation greater than 95% on room air. tw2 18:30 Rikki Ulloa MD is Hospitalizing Provider. rn 20:58 No provider procedures requiring assistance completed. Patient admitted, IV remains in jm8 place. Administered Medications: 15:48 Drug: NS 0.9% 1000 ml Route: IV; Rate: 1000 ml; Site: left hand; ph 21:11 Follow up: IV Status: Completed infusion jm8 15:49 Drug: Ativan (LORazepam) 1 mg Route: IVP; Site: left hand; ph 17:18 Follow up: Response: No adverse reaction ph 15:49 Drug: Demerol (meperidine) 25 mg Route: IVP; Site: left hand; ph 16:30 Follow up: Response: No adverse reaction; Pain is decreased; RASS: Alert and Calm (0) ph 18:35 Drug: Demerol (meperidine) 25 mg Route: IVP; Site: left hand; ph 18:54 Follow up: Response: No adverse reaction; Pain is decreased; RASS: Alert and Calm (0) tw2 18:35 Drug: SOLU-Medrol (methylPrednisoLONE) 125 mg Route: IVP; Site: left hand; ph 18:50 Follow up: Response: No adverse reaction tw2 18:49 Drug: LevaQUIN (levofloxacin) 750 mg Route: IVPB; Site: left hand; tw2 21:11 Follow up: Response: No adverse reaction; IV Status: Completed infusion 8 Outcome: 18:31 Decision to Hospitalize by Provider. rn 20:59 Admitted to Med/surg accompanied by tech, via wheelchair, with oxygen, with chart, jm8 Report called to Anh ALONSO 20:59 Condition: good 20:59 Instructed on the need for admit, Demonstrated understanding of instructions. 21:10 Patient left the ED. [facility] Signatures: Dispatcher [employer] Alpa Bustamante Roman, MD MD rn Hall, Patricia, RN RN Leny Orellana RN RN hb Leslie Gutierrez RN RN tw2 Roberto Alex RN RN jm8 Corrections: (The following items were deleted from the chart) 15:07 15:07 Allergies: No Known Allergies; hb hb
--- NOTE | 2021-04-10 18:32 | EDPHYS ---
Physician Documentation [facility] Name: Parker Zepeda Age: 51 yrs Sex: Male : 1970 Arrival Date: 04/10/2021 Time: 14:59 Bed 2 Private MD: ED Physician Lenny Rios HPI: 04/10 16:39 This 51 yrs old Male presents to ER via Ambulatory with complaints of Chest rn Pain, Shortness Of Breath. 16:39 The patient or guardian reports chest pain that is located primarily in the chest rn diffusely. Onset: yesterday. The pain does not radiate. Associated signs and symptoms: Pertinent positives: cough, shortness of breath, Pertinent negatives: lower extremity swelling, palpitations. The chest pain is described as a heaviness. Duration: The patient or guardian reports multiple episodes, that are intermittent. Modifying factors: The symptoms are alleviated by nothing. the symptoms are aggravated by exertion. Severity of pain: At its worst the pain was moderate in the emergency department the pain is unchanged. The patient has not experienced similar symptoms in the past. Reports chest pain that began yesterday/today, diffuse, assoc with sob, no fever, + mild cough, + smoker. Spent the weekend with woman and cocaine. NO known hx of cardiac problems. . Historical: - Allergies: 15:07 Dilaudid; hb - Home Meds: 15:07 losartan oral [Active]; hb - PMHx: 15:07 Hypertension; hb - Immunization history:: Adult Immunizations up to date. - Social history:: Smoking status: Patient reports the use of cigarette tobacco products, smokes one-half pack cigarettes per day. - Family history:: not pertinent. - Hospitalizations: : No recent hospitalization is reported. ROS: 16:39 Constitutional: Negative for fever, chills, and weight loss, Eyes: Negative for injury, rn pain, redness, and discharge, Neck: Negative for injury, pain, and swelling, Cardiovascular: + chest pain Respiratory: + sob and cough Abdomen/GI: Negative for abdominal pain, nausea, vomiting, diarrhea, and constipation, Back: Negative for injury and pain, MS/Extremity: Negative for injury and deformity, Skin: Negative for injury, rash, and discoloration, Neuro: Negative for headache, numbness, tingling, and seizure. Exam: 16:39 Constitutional: This is a well developed, well nourished patient who is awake, alert, rn appears anxious and tweaking Head/Face: Normocephalic, atraumatic. Eyes: Pupils equal round and reactive to light, extra-ocular motions intact. ENT: No stridor, dry MM Cardiovascular: Tachycardic, regular. No pulse deficits. Respiratory: + mild tachypnea Abdomen/GI: soft, non-tender Skin: Warm, dry MS/ Extremity: Pulses equal, no cyanosis. Neurovascular intact. Full, normal range of motion. Equal circumference. Neuro: Awake and alert, GCS 15, oriented to person, place, time, and situation. Cranial nerves II-XII grossly intact. Motor strength 5/5 in all extremities. Sensory grossly intact. Cerebellar exam normal. Normal gait. Vital Signs: 15:05 BP 137 / 89; Pulse 108; Resp 20; Temp 97; Pulse Ox 94% on R/A; Weight 107.95 kg; Height hb 5 ft. 11 in. (180.34 cm); Pain 6/10; 17:09 BP 113 / 83; Pulse 91; Resp 14; Pulse Ox 94% on 4 lpm NC; ph 18:25 BP 121 / 97; Pulse 98; Resp 17; Pulse Ox 95% on 4 lpm NC; tw2 18:44 Pulse Ox 90% on R/A; ph 15:05 Body Mass Index 33.19 (107.95 kg, 180.34 cm) hb MDM: 15:19 Patient medically screened. rn 16:22 ED course: Pt feeling better. rn 18:28 Differential diagnosis: coronary artery disease costochondritis, gastroesophageal rn reflux disease (GERD), pericarditis, pleurisy, pneumonia, pneumothorax, pulmonary embolus, thoracic aortic disection, COVID, pneumonia. Data reviewed: vital signs, nurses notes, lab test result(s), EKG, radiologic studies, CT scan, plain films, and as a result, I will admit patient. Counseling: I had a detailed discussion with the patient and/or guardian regarding: the historical points, exam findings, and any diagnostic results supporting the discharge/admit diagnosis, lab results, radiology results, the need for further work-up and treatment in the hospital. Response to treatment: the patient's symptoms have mildly improved after treatment, and as a result, I will admit patient. Admission orders: after a detailed discussion of the patient's condition and case, the admit orders are written by me. ED course: Pt with bilateral pneumonia, oxygen 90%, still tachypneic, will admit for IV abx. Not sure if COVID is false negative given his symptoms just started and CXR/CT chest look a lot like COVID pneumonia.. 04/10 15:26 Order name: Basic Metabolic Panel; Complete Time: 16:17 rn 04/10 15:26 Order name: CBC with Diff; Complete Time: 17: rn 04/10 15:26 Order name: NT PRO-BNP; Complete Time: 16:17 rn 04/10 15:26 Order name: PT-INR; Complete Time: 16:17 rn 04/10 15:26 Order name: Troponin (emerg Dept Use Only); Complete Time: 16:17 rn 04/10 15:26 Order name: XRAY Chest (1 view); Complete Time: 16:17 rn 04/10 15:29 Order name: CT Aorta for Dissection; Complete Time: 17: 04/10 15:55 Order name: Creatine Phosphokinase; Complete Time: 16:17 [facility] 04/10 16:20 Order name: Influenza Screen (A ; Complete Time: 18:08 [facility] 04/10 16:38 Order name: CBC Smear Scan; Complete Time: 17:09 [facility] 04/10 18:19 Order name: SARS-COV-2 RT PCR; Complete Time: 18:22 [facility] 04/10 15:26 Order name: EKG; Complete Time: 15:27 rn 04/10 15:26 Order name: Cardiac monitoring; Complete Time: 15:35 rn 04/10 15:26 Order name: EKG - Nurse/Tech; Complete Time: 15:35 rn 04/10 15:26 Order name: IV Saline Lock; Complete Time: 15:35 rn 04/10 15:26 Order name: Labs collected and sent; Complete Time: 15:35 rn 04/10 15:26 Order name: O2 Per Protocol; Complete Time: 15:35 rn 04/10 15:26 Order name: O2 Sat Monitoring; Complete Time: 15:35 rn Administered Medications: 15:48 Drug: NS 0.9% 1000 ml Route: IV; Rate: 1000 ml; Site: left hand; ph 21:11 Follow up: IV Status: Completed infusion jm8 15:49 Drug: Ativan (LORazepam) 1 mg Route: IVP; Site: left hand; ph 17:18 Follow up: Response: No adverse reaction ph 15:49 Drug: Demerol (meperidine) 25 mg Route: IVP; Site: left hand; ph 16:30 Follow up: Response: No adverse reaction; Pain is decreased; RASS: Alert and Calm (0) ph 18:35 Drug: Demerol (meperidine) 25 mg Route: IVP; Site: left hand; ph 18:54 Follow up: Response: No adverse reaction; Pain is decreased; RASS: Alert and Calm (0) tw2 18:35 Drug: SOLU-Medrol (methylPrednisoLONE) 125 mg Route: IVP; Site: left hand; ph 18:50 Follow up: Response: No adverse reaction tw2 18:49 Drug: LevaQUIN (levofloxacin) 750 mg Route: IVPB; Site: left hand; tw2 21:11 Follow up: Response: No adverse reaction; IV Status: Completed infusion jm8 Disposition Summary: 04/10/21 18:31 Hospitalization Ordered Hospitalization Status: Inpatient Admission rn Provider: Rikki Ulloa [facility]n [facility] rn Condition: Stable rn Problem: new rn Symptoms: have improved rn Bed/Room Type: Standard rn Room Assignment: 222(04/10/21 20:40) Diagnosis - Pneumonia, unspecified organism - Bilateral rn - Hypoxemia rn - Chest pain, unspecified rn Forms: - Medication Reconciliation Form rn - SBAR form rn Signatures: Dispatcher [employer] EDMS Lenny Rios MD MD rn Hall, Patricia RN RN Chuyita Solano RN RN Leny Orellana RN RN Leslie Mcmahon RN RN tw2 Roberto Alex RN jm8 Corrections: (The following items were deleted from the chart) 15:07 15:07 Allergies: No Known Allergies; hb hb 15:55 15:30 CREATINE PHOSPHOKINASE+C.LAB.BRZ ordered. EDMS EDMS 17:23 16:19 Influenza Screen (A \T\ B)+BA.LAB.BRZ ordered. EDMS EDMS 20:40 18:31 rn
[2021-04-10] MEDS ORDERED: METHYLPREDNISOLONE 125 MG INJ ONE (18:33)
[2021-04-10] MEDS ORDERED: Levofloxacin 750mg IV 750 MG/150 ML BAG IV ONE (19:06)
--- NOTE | 2021-04-10 20:53 | P.HP ---
Certification for Inpatient Patient admitted to: Observation With expected LOS: <2 Midnights Patient will require the following post-hospital care: None Practitioner: I am a practitioner with admitting privileges, knowledge of patient current condition, hospital course, and medical plan of care. Services: Services provided to patient in accordance with Admission requirements found in Title 42 Section 412.3 of the Code of Federal Regulations Patient History Date of Service: 04/10/21 Reason for admission: pneumonia History of Present Illness: Mr. Zepeda is a 51 yo M with HTN and substance abuse disorder (tobacco, alcohol, cocaine, marijuana) who presented today with chest pain. He says he thought he was having a heart attack, but realized he was having more difficulty breathing. He reports weakness, dizziness, pleuritic pain, wheezing, nausea and vomiting. CXR and CT scan consistent with pneumonia, COVID pattern suspected but patient has tested negative for COVID. WBC 12.1. K 3.4. Allergies No Known Allergies Allergy (Verified 09/13/20 21:13) Home Medications: Amox/Clavulanate [Augmentin 875-125 Tab] 875 mg PO BID #14 tab 09/15/20 Doxycycline Hyclate [Vibramycin] 100 mg PO BID #14 capsule 09/15/20 - Past Medical/Surgical History Diabetic: No -: HTN -: Hand surgery -: mastoidectomy - Family History Family History: Reviewed- Non-Contributory - Social History Smoking Status: Current every day smoker Alcohol use: Yes CD- Drugs: Yes Caffeine use: Yes Place of Residence: Home Review of Systems General: Weakness, Malaise Respiratory: Cough, Shortness of Breath, SOB with Excertion, Pleuritic Pain, Wheezing Gastrointestinal: Nausea, Vomiting Physical Examination - Physical Exam General: Alert, In no apparent distress HEENT: Atraumatic, PERRLA, Mucous membr. moist/pink, EOMI, Sclerae nonicteric Neck: Supple, 2+ carotid pulse no bruit, No LAD, Without JVD or thyroid abnormality Respiratory: Diminished, Expiratory wheezes Cardiovascular: Regular rate/rhythm, Normal S1 S2 Gastrointestinal: Normal bowel sounds, No tenderness Musculoskeletal: No tenderness Integumentary: No rashes Neurological: Normal gait, Normal speech, Normal strength at 5/5 x4 extr, Normal tone, Normal affect Lymphatics: No axilla or inguinal lymphadenopathy - Studies Laboratory Data (last 24 hrs) 04/10/21 15:30: PT 12.6 H, INR 1.09 04/10/21 15:30: WBC 12.10 H, Hgb 14.3, Hct 42.1, Plt Count 263 04/10/21 15:30: Sodium 139, Potassium 3.4 L, BUN 16, Creatinine 1.08, Glucose 117 H Microbiology Data (last 24 hrs): 04/10/21 17:00 Nasopharnyx Influenza Type A Antigen Screen - Final 04/10/21 17:00 Nasopharnyx Influenza Type B Antigen Screen - Final Assessment and Plan - Problems (Diagnosis) (1) Substance abuse Current Visit: Yes Status: Chronic (2) Pneumonia Current Visit: Yes Status: Acute Qualifiers: Pneumonia type: due to unspecified organism Laterality: bilateral Lung location: unspecified part of lung Qualified Code(s): J18.9 - Pneumonia, unspecified organism (3) HTN (hypertension) Current Visit: Yes Status: Chronic Qualifiers: Hypertension type: primary hypertension Qualified Code(s): I10 - Essential (primary) hypertension - Plan initial COVID test negative, but viral pattern on CT and CXR suspicious of COVID, will repeat COVID test in AM continue IV antibiotics, IV steroids, breathing treatments, and O2 as needed alcohol withdrawal assessment, PRN ativan for agitation UDS pending hydralazine PRN for BP spikes potassium replacement protocol DVT ppx Discharge Plan: Home Plan to discharge in: 24 Hours - Advance Directives Does patient have a Living Will: No Does patient have a Durable POA for Healthcare: No - Code Status/Comfort Care Code Status Assessed: Yes (full code ) Critical Care: No Time Spent Managing Pts Care (In Minutes): 70
[2021-04-10] MEDS ORDERED: POTASSIUM CL SA 10 MEQ TAB PO ONE (21:08)
[2021-04-10] MEDS ORDERED: ACETAMINOPHEN 500 MG TAB PO PRN (21:08)
[2021-04-10] MEDS ORDERED: ONDANSETRON 4 MG/2 ML VIAL IV PRN (21:08)
[2021-04-10] MEDS ORDERED: LORazepam 2 MG/ML VIAL IV PRN (21:08)
[2021-04-10] MEDS ORDERED: HYDRALAZINE HCL 20 MG/ML VIAL IV PRN (21:08)
[2021-04-10] MEDS: IPRATROPIUM BROM 0.5MG/2.5ML NEB SCH (21:15)
[2021-04-10] MEDS: ALBUTEROL 2.5 MG/3 ML NEB SOL NEB PRN (21:15)
[2021-04-10 21:29] VITALS: BMI 33.2
[2021-04-10] MEDS ORDERED: IPRATROPIUM BROM 0.5MG/2.5ML ONE (21:37)
[2021-04-10] MEDS ORDERED: ALBUTEROL 2.5 MG/3 ML NEB SOL ONE (21:41)
[2021-04-10] MEDS: MORPHINE 2 MG/ML SYR IV PRN (21:50)
[2021-04-11] MEDS: METHYLPREDNISOLONE 40 MG INJ IV SCH ×3 (00:38→18:08)
[2021-04-11] MEDS: IPRATROPIUM BROM 0.5MG/2.5ML NEB SCH ×4 (02:05→19:40)
[2021-04-11] MEDS: ALBUTEROL 2.5 MG/3 ML NEB SOL NEB PRN ×2 (02:05→19:40)
[2021-04-11 04:06] LABS: Absolute Lymphocytes (CBC) 0.9 K/uL (0.7-4.9); Basophils % 0.1 % (0-1.3); Hematocrit 39.1 % (39.6-49.0); Lymphocytes % 10.4 % (15.3-44.8); MPV 9.3 fL (7.6-11.3); RBC Red Blood Cell Count 4.11 M/uL (4.33-5.43)
[2021-04-11 04:45] LABS: ALT/SGPT 29 U/L (12-78); AST/SGOT 25 U/L (15-37); Albumin 3.2 g/dL (3.4-5.0); Alkaline Phosphatase 59 U/L (45-117); BUN Blood Urea Nitrogen 11 mg/dL (7-18); Bicarbonate 25 mmol/L (21-32); Bilirubin Total 1.8 mg/dL (0.2-1.0); Glucose Level 157 mg/dL (74-106); HDL Cholesterol 52 mg/dL (40-60); LDL Cholesterol, Calculated 36 (<130); Magnesium 1.9 mg/dL (1.8-2.4); Phosphorus 1.2 mg/dL (2.5-4.9); Potassium 4.2 mmol/L (3.5-5.1); Protein, Total 6.6 g/dL (6.4-8.2); Sodium Level 138 mmol/L (136-145)
[2021-04-11] MEDS: ENOXAPARIN 40 MG/0.4 ML SQ SCH (08:55)
[2021-04-11] MEDS: POTASS/SODIUM PHOSPHATE 1 PKT POWD.PACK PO SCH (08:55)
[2021-04-11] MEDS: MORPHINE 2 MG/ML SYR IV PRN ×3 (08:56→18:08)
--- NOTE | 2021-04-11 10:14 | P.PN ---
Subjective Date of Service: 04/11/21 Patient is clinically doing well with no new complaints. However, patient still with infiltrates. Echo is pending. CT is pending. Review of Systems 10-point ROS is otherwise unremarkable Physical Examination - Vital Signs Temperature: 98.7 F Blood Pressure: 105/67 Pulse: 85 Respirations: 17 Pulse Ox (%): 94 - Physical Exam General: Alert, In no apparent distress, Oriented x3 Respiratory: Diminished, Crackles/rales Cardiovascular: Regular rate/rhythm, Normal S1 S2, No murmurs Gastrointestinal: Normal bowel sounds, Soft and benign, Non-distended, No tenderness Musculoskeletal: No clubbing, No swelling, No tenderness Neurological: Sensation intact, Cranial nerves 3-12 intact - Studies Laboratory Data (last 24 hrs) 04/11/21 03:23: Sodium 138, Potassium 4.2, BUN 11, Creatinine 0.87, Glucose 157 H, Phosphorus 1.2 L, Magnesium 1.9, Total Bilirubin 1.8 H, AST 25, ALT 29, Alkaline Phosphatase 59, Triglycerides 68, Cholesterol 102, HDL Cholesterol 52, Cholesterol/HDL Ratio 1.96 04/11/21 03:23: WBC 8.30 D, Hgb 13.5 L, Hct 39.1 L, Plt Count 198 D 04/10/21 15:30: PT 12.6 H, INR 1.09 04/10/21 15:30: WBC 12.10 H, Hgb 14.3, Hct 42.1, Plt Count 263 04/10/21 15:30: Sodium 139, Potassium 3.4 L, BUN 16, Creatinine 1.08, Glucose 117 H Microbiology Data (last 24 hrs): 04/10/21 17:00 Nasopharnyx Influenza Type A Antigen Screen - Final 04/10/21 17:00 Nasopharnyx Influenza Type B Antigen Screen - Final Medications List Reviewed: Yes Assessment & Plan - Problems (Diagnosis) (1) Pneumonia Current Visit: Yes Status: Acute Qualifiers: Pneumonia type: due to unspecified organism Laterality: bilateral Lung location: unspecified part of lung Qualified Code(s): J18.9 - Pneumonia, unspecified organism (2) HTN (hypertension) Current Visit: Yes Status: Chronic Qualifiers: Hypertension type: primary hypertension Qualified Code(s): I10 - Essential (primary) hypertension (3) Substance abuse Current Visit: Yes Status: Chronic (4) Tobacco use Current Visit: No Status: Acute - Plan 1. Continue with IV antibiotics 2. Awaiting sputum and blood culture 3. Repeat chest x-ray 4. Will proceed with CT scan of the chest if pneumonia is not improved 5. Outpatient pulmonary follow 6. Continue with nebs as needed 7. O2 per protocol 8. Continue with gentle hydration 9. Repeat labs including CBC and renal function in a.m. 10. GI and DVT prophylaxis Discharge Plan: Home Plan to discharge in: Greater than 2 days - Advance Directives Does patient have a Living Will: No Does patient have a Durable POA for Healthcare: No - Code Status/Comfort Care Code Status: Full Code
[2021-04-11 11:01] LABS: Urine Appearance CLEAR (Clear); Urine Bilirubin NEGATIVE (Negative); Urine Blood NEGATIVE (Negative); Urine Color YELLOW (Yellow); Urine Glucose TRACE (Negative); Urine Protein NEGATIVE (Negative); Urine pH 7.5 (5.0-7.0)
[2021-04-11 11:02] LABS: Urine Microscopic Reflex NO UMIC
--- NOTE | 2021-04-11 12:42 | EKG ---
Test Date: 2021-04-10 Test Time: 15:16:51 X Ray Physician: HB MEASUREMENT RESULTS: Intervals: Rate: 102 MI: 142 QRSD: 88 QT: 342 QTc: 445 [place]: P: 64 MI: 142 QRS: 60 T: 56 INTERPRETIVE STATEMENTS: Sinus tachycardia Otherwise normal ECG Compared to ECG 03/03/2007 10:14:50 No significant changes Electronically Signed On 04-11-21 12:37:44 CDT by Crow Valentin
[2021-04-11] MEDS: Levofloxacin 750mg IV 750 MG/150 ML BAG IV SCH (18:08)
[2021-04-11] MEDS ORDERED: HYDROCODONE/APAP 10/325 TAB PO PRN (19:03)
[2021-04-11] MEDS: FENTANYL CITR 100 MCG/2 ML IV PRN (20:02)
[2021-04-11] MEDS: BENZONATATE 100 MG CAP PO PRN (20:03)
[2021-04-12] MEDS: METHYLPREDNISOLONE 40 MG INJ IV SCH ×3 (00:28→17:19)
[2021-04-12] MEDS ORDERED: LORAZEPAM 0.5 MG TABLET PO ONE (00:36)
[2021-04-12] MEDS: FENTANYL CITR 100 MCG/2 ML IV PRN ×4 (00:53→22:25)
[2021-04-12] MEDS: ALBUTEROL 2.5 MG/3 ML NEB SOL NEB PRN (01:10)
[2021-04-12] MEDS: IPRATROPIUM BROM 0.5MG/2.5ML NEB SCH ×4 (01:10→20:15)
[2021-04-12 06:19] LABS: Absolute Lymphocytes (CBC) 0.7 K/uL (0.7-4.9); Basophils % 0.5 % (0-1.3); Hematocrit 40.2 % (39.6-49.0); MPV 9.1 fL (7.6-11.3); RBC Red Blood Cell Count 4.24 M/uL (4.33-5.43)
[2021-04-12 06:46] LABS: Albumin 3.4 g/dL (3.4-5.0); Bilirubin Total 0.7 mg/dL (0.2-1.0); Magnesium 2.3 mg/dL (1.8-2.4); Phosphorus 1.9 mg/dL (2.5-4.9); Potassium 3.9 mmol/L (3.5-5.1); Protein, Total 7.1 g/dL (6.4-8.2)
[2021-04-12] MEDS: ENOXAPARIN 40 MG/0.4 ML SQ SCH (09:49)
--- NOTE | 2021-04-12 09:50 | RAD REPORT ---
EXAM DESCRIPTION: RAD - Chest Single View - 04/12/2021 5:37 am CLINICAL HISTORY: pneumonia COMPARISON: Chest Single View dated 04/10/2021; Chest Single View dated 09/13/2020 FINDINGS: Similar scattered areas of interstitial airspace disease bilaterally. The heart size is wi thin normal limits.No acute osseous abnormality. No significant pleural effusions or pneumothorax. IMPRESSION: No significant change compared with 04/10/2021 with similar multifocal airspace disease that likely represents pneumonia.
[2021-04-12] MEDS: BENZONATATE 100 MG CAP PO PRN (11:47)
--- NOTE | 2021-04-12 13:29 | RAD REPORT ---
EXAM DESCRIPTION: CT - Chest Angio - 04/12/2021 1:00 pm CLINICAL HISTORY: multifocal pneumonia COMPARISON: Chest Single View dated 04/12/2021 TECHNIQUE: Dynamically enhanced 3 mm thick images of the chest were obtained during administration o f approximately 150mL Isovue 370 IV contrast. Coronal and oblique MIP reconstruction images were gene rated and reviewed. Exam utilizes a protocol to evaluate the pulmonary arterial tree. All CT scans are performed using dose optimization technique as appropriate and may include automated exposure control or mA/KV adjustment according to patient size. FINDINGS: No pulmonary emboli are identified. The aorta as imaged shows no acute or suspicious finding. No pericardial thickening or effusion. Ground-glass airspace opacification is present scattered throughout all lung [place]. One small focal of consolidation 2 cm in size present in the posterior lingula of the left upper lobe. No suspicious mass or cavitation. There is a 2 centimeter air-filled cystic cavity in the left lower lobe that like ly predated the current acute process. No pleural effusion or pleural thickening. No endobronchial le sions are present. No pneumothorax. No mediastinal or hilar suspicious masses. No chest wall masses or abnormal axillary lymphadenopathy. IMPRESSION: No pulmonary emboli identified. Diffuse ground-glass airspace opacification pattern throughout all lobes without associated suspiciou s mass, cavitation or other complication. The pattern is nonspecific and has a very broad differential of both infectious and noninfectious [place] ologies. In the current clinical environment, COVID-19 pneumonia would be a primary consideration if not already excluded. Non COVID viral pneumonia would be primary consideration as well. Bacterial pne umonia is possible but is less typically in this presentation.Cardiogenic or non cardiogenic pulmonar y edema is possible. Pulmonary hemorrhage is possible but lesser in likelihood.
--- NOTE | 2021-04-12 13:55 | ECHO ---
HEIGHT: 5 ft 11 in WEIGHT: 238 lb 0 oz DATE OF STUDY: 04/12/[address]: Rikki Ulloa MD 2-DIMENSIONAL: YES M.MODE: YES DOPPLER: YES COLOR FLOW: YES TDS: NO PORTABLE: NO DEFINITY: NO BUBBLE STUDY: NO DIAGNOSIS: DYSPNEA CARDIAC HISTORY: CATHERIZATION: SURGERY: PROSTHETIC VALVE: PACEMAKER: MEASUREMENTS (cm) DIASTOLIC (NORMALS) SYSTOLIC (NORMALS) IVSd 0.9 (0.6-1.2) LA Diam 3.4 (1.9-4.0) LVEF 55-60% LVIDd 5.2 (3.5-5.7) LVIDs 2.9 (2.0-3.5) %FS 44% LVPWd 1.3 (0.6-1.2) Ao Diam 3.0 (2.0-3.7) 2 DIMENSIONAL ASSESSMENT: RIGHT ATRIUM: NORMAL LEFT ATRIUM: NORMAL RIGHT VENTRICLE: NORMAL LEFT VENTRICLE: NORMAL TRICUSPID VALVE: NORMAL MITRAL VALVE: NORMAL PULMONIC VALVE: NORMAL AORTIC VALVE: NORMAL PERICARDIAL EFFUSION: NONE AORTIC ROOT: NORMAL LEFT VENTRICULAR WALL MOTION: NORMAL DOPPLER/COLOR FLOW: MILD TRICUSPID REGURGITATION. COMMENTS: NORMAL LEFT VENTRICULAR EJECTION FRACTION 55-60%. NORMAL WALL MOTION. MILD PULMONARY HYPERTENSION WITH RIGHT VENTRICULAR SYSTOLIC PRESSURE OF 35-40 mmHg. NORMAL DIASTOLIC FUNCTION. TECHNOLOGIST: Moses OHARA
[2021-04-12] MEDS ORDERED: ALBUTEROL 2.5 MG/3 ML NEB SOL NEB PRN (15:00)
[2021-04-12] MEDS ORDERED: TEMAZEPAM 15 MG CAP PO PRN (16:08)
[2021-04-12] MEDS: Levofloxacin 750mg IV 750 MG/150 ML BAG IV SCH (17:18)
[2021-04-12 20:53] VITALS: O2SAT 95
[2021-04-13] MEDS: METHYLPREDNISOLONE 40 MG INJ IV SCH ×2 (00:52→09:00)
[2021-04-13] MEDS ORDERED: DIPHENHYDRAMINE 25 MG TAB/CAP PO PRN (00:56)
[2021-04-13] MEDS: IPRATROPIUM BROM 0.5MG/2.5ML NEB SCH ×2 (02:00→08:52)
[2021-04-13 08:41] LABS: Potassium 4.5 mmol/L (3.5-5.1)
[2021-04-13] MEDS: ENOXAPARIN 40 MG/0.4 ML SQ SCH (09:00)
[2021-04-13 09:52] VITALS: BP 105/67; TEMP 98.7
--- NOTE | 2021-04-13 09:54 | P.PN ---
Date of Service: 04/12/[address] an echo pending. Anticipate discharge over the next 24-48 hr. Review of Systems 10-point ROS is otherwise unremarkable Physical Examination - Vital Signs Reviewed - Physical Exam General: Alert, In no apparent distress, Oriented x3 Respiratory: Diminished, Crackles/rales Cardiovascular: Regular rate/rhythm, Normal S1 S2, No murmurs Gastrointestinal: Normal bowel sounds, Soft and benign, Non-distended, No tenderness Musculoskeletal: No clubbing, No swelling, No tenderness Neurological: Sensation intact, Cranial nerves 3-12 intact Assessment & Plan - Problems (Diagnosis) (1) Pneumonia Current Visit: Yes Status: Acute Qualifiers: Pneumonia type: due to unspecified organism Laterality: bilateral Lung location: unspecified part of lung Qualified Code(s): J18.9 - Pneumonia, unspecified organism (2) HTN (hypertension) Current Visit: Yes Status: Chronic Qualifiers: Hypertension type: primary hypertension Qualified Code(s): I10 - Essential (primary) hypertension (3) Substance abuse Current Visit: Yes Status: Chronic (4) Tobacco use Current Visit: No Status: Acute - Plan Continue with plan of care as mentioned below: 1. Continue with IV antibiotics 2. Cultures are negative 3. Repeat chest x-ray 4. CT and echo are pending 5. Outpatient pulmonary follow 6. Continue with nebs as needed 7. Change to room air 8. GI and DVT prophylaxis
--- NOTE | 2021-04-13 09:54 | P.DS ---
Discharge Date: 04/13/21 Disposition: ROUTINE DISCHARGE Discharge Condition: GOOD Reason for Admission: pneumonia - Problems (1) Pneumonia Current Visit: Yes Status: Acute Qualifiers: Pneumonia type: due to unspecified organism Laterality: bilateral Lung location: unspecified part of lung Qualified Code(s): J18.9 - Pneumonia, unspecified organism (2) HTN (hypertension) Current Visit: Yes Status: Chronic Qualifiers: Hypertension type: primary hypertension Qualified Code(s): I10 - Essential (primary) hypertension (3) Substance abuse Current Visit: Yes Status: Chronic (4) Tobacco use Current Visit: No Status: Acute Brief History of Present Illness: Mr. Zepeda is a 51 yo M with HTN and substance abuse disorder (tobacco, alcohol, cocaine, marijuana) who presented today with chest pain. He says he thought he was having a heart attack, but realized he was having more difficulty breathing. He reports weakness, dizziness, pleuritic pain, wheezing, nausea and vomiting. CXR and CT scan consistent with pneumonia, COVID pattern suspected but patient has tested negative for COVID. WBC 12.1. K 3.4. Vital Signs/Physical Exam: Temp Pulse Resp BP Pulse Ox 98.7 F 85 17 105/67 94 04/13/21 09:51 04/13/21 09:51 04/13/21 09:51 04/13/21 09:51 04/13/21 09:51 Laboratory Data at Discharge: WBC 6.30 K/uL (4.3-10.9) D 04/12/21 05:49 Hgb 13.7 g/dL (13.6-17.9) 04/12/21 05:49 Hct 40.2 % (39.6-49.0) 04/12/21 05:49 Plt Count 232 K/uL (152-406) 04/12/21 05:49 PT 12.6 SECONDS (9.5-12.5) H 04/10/21 15:30 INR 1.09 04/10/21 15:30 Sodium 141 mmol/L (136-145) 04/13/21 07:08 Potassium 4.5 mmol/L (3.5-5.1) 04/13/21 07:08 BUN 15 mg/dL (7-18) 04/13/21 07:08 Creatinine 0.95 mg/dL (0.55-1.3) 04/13/21 07:08 Glucose 164 mg/dL (74-106) H 04/13/21 07:08 Phosphorus 3.0 mg/dL (2.5-4.9) D 04/13/21 07:08 Magnesium 2.3 mg/dL (1.8-2.4) 04/12/21 05:49 Total Bilirubin 0.7 mg/dL (0.2-1.0) 04/12/21 05:49 AST 13 U/L (15-37) L 04/12/21 05:49 ALT 30 U/L (12-78) 04/12/21 05:49 Alkaline Phosphatase 56 U/L (45-117) 04/12/21 05:49 Triglycerides 68 mg/dL (<150) 04/11/21 03:23 Cholesterol 102 mg/dL (<200) 04/11/21 03:23 HDL Cholesterol 52 mg/dL (40-60) 04/11/21 03:23 Cholesterol/HDL Ratio 1.96 04/11/21 03:23 Home Medications: Albuterol Neb [Proventil 0.083% Neb Soln] 2.5 mg NEB [id number] PRN #60 amp 04/13/21 Benzonatate [Tessalon Perle*] 100 mg PO TID PRN #30 cap 04/13/21 Hydrocodone 7.5/APAP 325 [[place] 7.5/325 mg] 1 tab PO Q6H PRN #28 tab 04/13/21 Levofloxacin [Levaquin] 500 mg PO DAILY #7 tablet 04/13/21 Losartan Potassium 100 mg PO DAILY #30 04/13/21 Temazepam [Restoril*] 15 mg PO BEDTIME PRN PRN #10 cap 04/13/21 predniSONE [Prednisone*] 20 mg PO BID #25 tab 04/13/21 New Medications: Levofloxacin [Levaquin] 500 mg PO DAILY #7 tablet Losartan Potassium 100 mg PO DAILY #30 Hydrocodone 7.5/APAP 325 [[place] 7.5/325 mg] 1 tab PO Q6H PRN #28 tab PRN Reason: Pain predniSONE [Prednisone*] 20 mg PO BID #25 tab Albuterol Neb [Proventil 0.083% Neb Soln] 2.5 mg NEB [id number] PRN #60 amp PRN Reason: Shortness Of Breath Temazepam [Restoril*] 15 mg PO BEDTIME PRN PRN #10 cap PRN Reason: Insomnia Benzonatate [Tessalon Perle*] 100 mg PO TID PRN #30 cap PRN Reason: Cough Physician Discharge Instructions: OK TO DC IV AND DC HOME FOLLOW-UP WITH PRIMARY CARE PROVIDER IN 1-2 WEEKS FOLLOW-UP WITH Pulmonary IN 1-2 WEEKS RETURN TO THE ER IF symptoms worsen CALL or TEXT DR. CHAO AT [phone] IF ANY QUESTIONS REGARDING HOSPITAL STAY. PLEASE CALL THE FLOOR AT [phone] IF ANY MEDICATION OR NURSING QUESTIONS. Diet: AHA Activity: Fall precautions Followup: NONE,NONE [Primary Care Provider] -
[2021-04-14 18:18] LABS: HBsAG Nonreactive (Nonreactive)
[2021-04-15 15:54] LABS: HIV AG/AB 4TH GEN Non-reactive (Non-reactive)
[2021-04-16 08:46] LABS: Hep C Virus RNA (PCR)log 6.55 log IU/mL
== END 2021-04-13 10:58 | disposition home or self-care (01) | DRG 195 ==
LOC: ER 14:58 → 2ND 19:02 → OBSVTOIN 04-11 07:46
PROVIDERS: ADMIT Hospitalist; ATTEND Hospitalist
DX: J18.9 Pneumonia, unspecified organism (principal); I10 Essential (primary) hypertension; F19.10 Other psychoactive substance abuse, uncomplicated; F17.210 Nicotine dependence, cigarettes, uncomplicated; R09.02 Hypoxemia; Z88.5 Allergy status to narcotic agent; Z79.52 Long term (current) use of systemic steroids; Z79.899 Other long term (current) drug therapy; Z20.822 Contact with and (suspected) exposure to COVID-19
CPT/HCPCS: 36415; 71045; 71275; 74175; 80048; 80053; 80061; 80074; 81003; 82550; 83735; 83880; 84100; 84145; 84484; 85025; 85610; 86140; 87070; 87205; 87389; 87522; 87804; 93005; 93306; 94640; 94760; 96361; 96365; 96366; 96375; 99285; G0378; J1650; J1940; J2175; J2270; J2920; J2930; J3010; J7030; J7040; Q9967; U0003